=== PATIENT | male | born 1970 | race Hispanic/Latino ===

== ENCOUNTER 2018-11-02 15:10 | Emergency (ER) | payer SELFPAY ==
[~2018-11-02] VITALS: Ht 167.6 cm; Wt 77.3 kg
[~2018-11-02 15:10] MED LIST: ACTOS15 MG PO; ASPIRIN81 MG PO; AUGMENTIN875TAB OR; FISH OIL1000 MG PO; GLUCOVANCE5 MG/500 M PO; LISINOPRIL20 MG PO; LOPID600 MG PO; LORTAB5 PO; TRAMADOL HCL50 MG PO; VIAGRA50 MG PO
[2018-11-02] MEDS ORDERED: KEFLEX500 M1 PO (16:50)
[2018-11-02 17:05] VITALS: BP 126/75
== END 2018-11-02 17:29 | disposition home or self-care (01) | DRG 605 ==
LOC: ED 15:10
PROC: 0HQEXZZ Repair Left Lower Arm Skin, External Approach (ICD-10-PCS; principal; 2018-11-02)
DX: S51.812A Laceration without foreign body of left forearm, initial encounter (principal); W26.8XXA Contact with other sharp object(s), not elsewhere classified, initial encounter; W22.8XXA Striking against or struck by other objects, initial encounter; Y93.89 Activity, other specified; Y92.002 Bathroom of unspecified non-institutional (private) residence as the place of occurrence of the external cause

== ENCOUNTER 2018-11-04 15:37 | Emergency (ER) | payer SELFPAY ==
[~2018-11-04] VITALS: Ht 167.6 cm; Wt 76.0 kg
[~2018-11-04 15:37] MED LIST changes: +KEFLEX500 M1 PO
[2018-11-04] MEDS ORDERED: AMOXICILLIN500 MG PO (18:30)
[2018-11-04 19:20] VITALS: BP 134/68
== END 2018-11-04 19:20 | disposition home or self-care (01) | DRG 950 ==
LOC: ED 15:37
DX: S51.812D Laceration without foreign body of left forearm, subsequent encounter (principal)

== ENCOUNTER 2018-11-07 16:59 | Emergency (ER) | payer SELFPAY ==
[~2018-11-07] VITALS: Ht 167.6 cm; Wt 79.1 kg
[~2018-11-07 16:59] MED LIST changes: +AMOXICILLIN500 MG PO
[2018-11-07 17:39] VITALS: BP 118/71
== END 2018-11-07 17:56 | disposition home or self-care (01) | DRG 950 ==
LOC: ED 16:59
DX: S51.802D Unspecified open wound of left forearm, subsequent encounter (principal); X58.XXXD Exposure to other specified factors, subsequent encounter

== ENCOUNTER 2018-11-17 16:31 | Emergency (ER) | payer SELFPAY ==
[~2018-11-17] VITALS: Ht 167.6 cm; Wt 84.1 kg
[2018-11-17 17:45] VITALS: BP 126/80
[2018-11-17] MEDS ORDERED: LEVEMIR100 UNIT/M SC (17:50)
[2018-11-17] MEDS ORDERED: HUMALOG KW100 UNIT/M SC (17:51)
[2018-11-17] MEDS ORDERED: METFORMIN500 M2 PO (17:51)
== END 2018-11-17 17:45 | disposition home or self-care (01) | DRG 950 ==
LOC: ED 16:31
DX: S51.812D Laceration without foreign body of left forearm, subsequent encounter (principal); X58.XXXD Exposure to other specified factors, subsequent encounter; E11.9 Type 2 diabetes mellitus without complications; I10 Essential (primary) hypertension